=== PATIENT | female | born 1960 | race Caucasian/White ===

== ENCOUNTER 2017-02-27 15:26 | Inpatient (IN) | payer MEDICAID ==
[~2017-02-27] VITALS: Ht 160 cm; Wt 103.0 kg
[2017-02-27 22:00] VITALS: BP 172/111
[2017-02-27] MEDS ORDERED: MORPHINE SULF INJ 2 MG/ML SYRINGE 1ML IV PRN (22:00)
[2017-02-27] MEDS ORDERED: ENOXAPARIN SOD 100 MG/1 ML SYRINGE SC ONE (22:00)
[2017-02-27] MEDS ORDERED: NITROGLYCERIN 0.4 MG SL TAB SL PRN (22:00)
[2017-02-27] MEDS ORDERED: ZOLPIDEM TARTRATE 5 MG TAB PO PRN (22:00)
[2017-02-27] MEDS ORDERED: AMIODARONE HCL 900 MG in DEXTROSE 500 ML IV SCH (22:09)
[2017-02-27] MEDS ORDERED: hydrALAZINE HCL 20 MG/ML VL IV PRN (22:30)
[2017-02-27 23:00] VITALS: BP 168/99
[2017-02-27] MEDS: ATORVASTATIN 20 MG TAB PO SCH (23:36)
[2017-02-27] MEDS ORDERED: AMIODARONE HCL 900 MG IV ONE (23:47)
[2017-02-28] VITALS (24 sets, daily range): BP systolic 107–170; BP diastolic 60–106
[2017-02-28] MEDS: HYDROcodone-ACET 5/325MG TAB PO PRN ×2 (00:17→21:57)
[2017-02-28 04:19] LABS: Basophils # (auto) 0 uL; Basophils % (auto) 0.4 % (0.0-2.0); Eosinophils # (auto) 0.1 uL; Eosinophils % (auto) 2.1 % (0.0-7.0); Hematocrit 38.7 % (36.0-46.0); Hemoglobin 12.6 g/dL (12.2-16.2); Lymphocytes # (auto) 1.9 uL; Lymphocytes % (auto) 30.9 % (10.0-50.0); Mean Corpuscular Hemoglobin 27.3 pg (28.0-32.0); Mean Corpuscular Hgb Conc. 32.7 g/dL (32.0-36.0); Mean Corpuscular Volume 83.6 fL (80.0-100.0); Mean Platelet Volume 8.6 fL (7.4-10.4); Monocytes # (auto) 0.6 uL; Monocytes % (auto) 9.8 % (0.0-12.0); Neutrophils # (auto) 3.6 uL; Neutrophils % (auto) 56.8 % (37.0-80.0); Platelet Count (auto) 202 10^3/uL (140-450); Red Cell Distribution Width 15.1 % (11.6-16.0); White Blood Cell 6.3 10^3/uL (4.4-10.8)
[2017-02-28 04:21] LABS: Albumin 3.3 g/dL (3.4-5.0); Calcium 8.5 mg/dL (8.5-10.1)
[2017-02-28 04:24] LABS: Bilirubin, Total 0.4 mg/dL (0.2-1.0); Total Protein 6.7 g/dL (6.4-8.2)
[2017-02-28] MEDS: AMIODARONE HCL 900 MG in DEXTROSE 500 ML IV SCH ×2 (07:30→13:32)
[2017-02-28] MEDS ORDERED: ENOXAPARIN SOD 100 MG/1 ML SYRINGE SC ONE (09:45)
[2017-02-28 10:23] LABS: Prothrombin Time 10.8 sec (9.37-12.3)
[2017-02-28] MEDS: LISINOPRIL 10 MG TAB PO SCH (11:10)
[2017-02-28] MEDS: PANTOPRAZOLE SODIUM 40 MG/10 ML VIAL IV SCH (11:10)
[2017-02-28] MEDS: ENOXAPARIN SOD 100 MG/1 ML SYRINGE SC SCH (21:50)
[2017-02-28] MEDS: ATORVASTATIN 20 MG TAB PO SCH (21:50)
[2017-03-01] VITALS (46 sets, daily range): BP systolic 121–154; BP diastolic 63–102
[2017-03-01 04:20] LABS: BUN/Creatinine Ratio 18.5; Calcium 8.4 mg/dL (8.5-10.1)
[2017-03-01] MEDS: ENOXAPARIN SOD 100 MG/1 ML SYRINGE SC SCH (10:00)
[2017-03-01] MEDS: PANTOPRAZOLE SODIUM 40 MG/10 ML VIAL IV SCH (10:04)
[2017-03-01] MEDS: LISINOPRIL 10 MG TAB PO SCH (10:05)
[2017-03-01] MEDS ORDERED: MIDAZOLAM HCL 1MG/1ML-2 ML VIAL ONE ×2 (10:25→10:43)
[2017-03-01] MEDS ORDERED: fentaNYL CITRATE 100 MCG/2 ML VL ONE (10:25)
[2017-03-01] MEDS ORDERED: LIDOCAINE VISCOUS 2% 15ML UD ONE (10:48)
[2017-03-01] MEDS ORDERED: BENZOCAINE (DENTAL) 20 % SPRAY 60ML MT ONE ×2 (10:48→12:00)
[2017-03-01] MEDS ORDERED: LIDOCAINE 2%HCL (LOCAL ANESTH.) INJ 20ML MDV ONE (10:48)
[2017-03-01] MEDS ORDERED: hydrALAZINE HCL 20 MG/ML VL ONE (11:12)
[2017-03-01] MEDS ORDERED: HYDROmorphone HCL 2 MG/ML VL ONE (11:58)
[2017-03-01] MEDS ORDERED: LIDOCAINE VISCOUS 2% 15ML UD MT ONE (12:00)
[2017-03-01] MEDS ORDERED: AMIODARONE HCL 200 MG TAB PO ONE (13:00)
[2017-03-01] MEDS ORDERED: SODIUM CHLORIDE 0.9% 1,000 ML IV SCH (13:01)
[2017-03-01] MEDS ORDERED: AMIODARONE HCL 900 MG in DEXTROSE 500 ML IV SCH (13:15)
[2017-03-01] MEDS ORDERED: APIXABAN 5 MG TAB PO ONE (13:15)
[2017-03-01] MEDS ORDERED: ONDANSETRON HCL 4 MG/2 ML VIAL ONE (13:18)
[2017-03-01] MEDS: ONDANSETRON HCL 4 MG/2 ML VIAL IV PRN (14:49)
[2017-03-01] MEDS: AMIODARONE HCL 200 MG TAB PO SCH (21:54)
[2017-03-01] MEDS: ATORVASTATIN 20 MG TAB PO SCH (21:55)
[2017-03-01] MEDS: APIXABAN 5 MG TAB PO SCH (21:55)
[2017-03-02] VITALS (49 sets, daily range): BP systolic 93–148; BP diastolic 56–97
[2017-03-02] MEDS: ONDANSETRON HCL 4 MG/2 ML VIAL IV PRN (00:02)
[2017-03-02 04:11] LABS: Basophils # (auto) 0 uL; Basophils % (auto) 0.2 % (0.0-2.0); Eosinophils # (auto) 0 uL; Eosinophils % (auto) 0.2 % (0.0-7.0); Hematocrit 38.2 % (36.0-46.0); Hemoglobin 12.5 g/dL (12.2-16.2); Lymphocytes # (auto) 1.5 uL; Lymphocytes % (auto) 16.7 % (10.0-50.0); Mean Corpuscular Hemoglobin 27.9 pg (28.0-32.0); Mean Corpuscular Hgb Conc. 32.7 g/dL (32.0-36.0); Mean Corpuscular Volume 85.5 fL (80.0-100.0); Mean Platelet Volume 8.6 fL (7.4-10.4); Monocytes # (auto) 0.6 uL; Monocytes % (auto) 6.9 % (0.0-12.0); Neutrophils # (auto) 6.9 uL; Platelet Count (auto) 213 10^3/uL (140-450); Red Cell Distribution Width 15.6 % (11.6-16.0)
[2017-03-02 04:21] LABS: BUN/Creatinine Ratio 22.4; Calcium 8.3 mg/dL (8.5-10.1); Potassium 4.1 mmol/L (3.5-5.1)
[2017-03-02] MEDS ORDERED: AMIODARONE HCL 900 MG in DEXTROSE 500 ML IV SCH (07:30)
[2017-03-02] MEDS: APIXABAN 5 MG TAB PO SCH (10:13)
[2017-03-02] MEDS: PANTOPRAZOLE SODIUM 40 MG/10 ML VIAL IV SCH (10:13)
[2017-03-02] MEDS: AMIODARONE HCL 200 MG TAB PO SCH (10:13)
[2017-03-02] MEDS: LISINOPRIL 10 MG TAB PO SCH (10:14)
== END 2017-03-02 17:45 | disposition home or self-care (01) | DRG 175 ==
LOC: ICU WEST 15:26 → WEST WING 02-28 16:40 → ICU WEST 02-28 17:00
PROVIDERS: ADMIT Internal Medicine Nephrology; ATTEND Internal Medicine
PROC: B246ZZ4 Ultrasonography of Right and Left Heart, Transesophageal (ICD-10-PCS; principal; 2017-03-01)
PROC: 02583ZZ Destruction of Conduction Mechanism, Percutaneous Approach (ICD-10-PCS; 2017-03-01)
PROC: 4B02XSZ Measurement of Cardiac Pacemaker, External Approach (ICD-10-PCS; 2017-03-01)
DX: I48.92 Unspecified atrial flutter (principal); I50.33 Acute on chronic diastolic (congestive) heart failure; E88.09 Other disorders of plasma-protein metabolism, not elsewhere classified; I08.1 Rheumatic disorders of both mitral and tricuspid valves; Z95.0 Presence of cardiac pacemaker; I48.91 Unspecified atrial fibrillation; I11.0 Hypertensive heart disease with heart failure; Z87.891 Personal history of nicotine dependence; Z90.49 Acquired absence of other specified parts of digestive tract
CPT/HCPCS: 36415; 80048; 80053; 83735; 85025; 85610; 87081; 93312; 93656; 99152; C9113; J2250; J2405